=== PATIENT | female | born 1970 | race Caucasian/White ===

== ENCOUNTER 2018-08-23 20:12 | Emergency (ER) | payer OTHER ==
[~2018-08-23] VITALS: Ht 165.1 cm; Wt 71.4 kg
[2018-08-23 21:30] VITALS: Ht 165.1 cm; Wt 71.4 kg
[2018-08-23] MEDS ORDERED: ALBUTEROL 0.5% (NEB) 2.5 MG/0.5 ML AMP NEB STA (23:17)
[2018-08-23] MEDS ORDERED: predniSONE 20 MG TAB PO STA (23:17)
--- NOTE | 2018-08-23 23:23 | ERD ---
ER Documentation Chief Complaint Chief Complaint FEVER, COUGH, SOB X 1 WEEK HPI 47-year-old female with no significant past medical history presenting to the emergency department with complaints of intermittent chills, nasal congestion, and cough for the past 1 week. She reports sharp chest pain when coughing. She also reports shortness of breath which is intermittent. She is tried [id number] medication with some relief of her symptoms. Symptoms are currently moderate in severity. She denies any other symptoms at this time. ROS All systems reviewed and are negative except as per history of present illness. Medications Home Meds Active Scripts Ibuprofen* (Motrin*) 600 Mg Tab, 600 MG PO Q6, #30 TAB Prov:FILOMENA PEREZ PA-C 08/24/18 Benzonatate* (Benzonatate*) 200 Mg Capsule, 200 MG PO TID PRN for COUGH, #15 CAP Prov:FILOMENA PEREZ PA-C 08/24/18 Amoxicillin/Potassium Clav (Amox-Clav 875-125 mg Tablet) 875-125 mg Tab, 1 TAB PO BID for 10 Days, #20 TAB Prov:FILOMENA PEREZ PA-C 08/24/18 Methylprednisolone* (Medrol* DOSE PACK) 4 Mg/Dose-Pack Tab.ds.pk, 4 MG PO . DIRECTED, #1 PACKET Prov:FILOMENA PEREZ PA-C 08/24/18 Albuterol Sulfate* (Ventolin HFA*) 18 Gm Hfa.aer.ad, 2 PUFF INHALATION Q4H, #1 INHALER Prov:FILOMENA PEREZ PA-C 08/24/18 Allergies Allergies: Coded Allergies: No Known Allergy (Unverified , 08/23/18) PMhx/Soc Medical and Surgical Hx: pt denies Medical Hx, pt denies Surgical Hx Hx Alcohol Use: No Hx Substance Use: No Hx Tobacco Use: No Smoking Status: Never smoker FmHx Family History: No diabetes Physical Exam Vitals Vital Signs Date Temp Pulse Resp B/P (MAP) Pulse Ox O2 O2 Flow FiO2 Time Delivery Rate 08/24/18 98.1 90 18 117/57 97 01:51 (77) 08/23/18 100.2 23:45 08/23/18 78 20 100 21 23:39 08/23/18 100.2 99 18 116/70 98 21:30 (85) Physical Exam Const: No acute distress Head: Atraumatic Eyes: Normal Conjunctiva ENT: Normal External Ears, Nose and Mouth. Left tympanic membrane is significantly erythematous. Neck: Full range of motion. No meningismus. Resp: Mild inspiratory wheezing noted to the right lower lung field. No crackles. No respiratory distress. Cardio: Regular rate and rhythm, no murmurs Skin: No petechiae or rashes Back: No midline or flank tenderness Ext: No cyanosis, or edema Neur: Awake and alert Psych: Normal Mood and Affect Results 24 hrs Laboratory Tests Test 08/24/18 01:12 POC Beta HCG, Qualitative NEGATIVE Current Medications Medications Dose Sig/Leola Start Time Status Last (Trade) Ordered Route PRN Stop Time Admin Dose Reason Admin Albuterol 10 mg ONCE STAT 08/23/18 DC 08/23/18 (Proventil NEB 23:17 08/23/18 23:38 0.5% (Neb)) 23:22 Prednisone 60 mg ONCE STAT 08/23/18 DC 08/23/18 (Prednisone) PO 23:17 08/23/18 23:44 23:22 650 mg ONCE ONCE 08/23/18 DC 08/23/18 Acetaminophen PO 23:30 08/23/18 23:45 (Tylenol 23:31 Tab) Procedures/MDM 47-year-old female presenting to the emergency department with signs and symptoms most consistent with acute bronchitis with wheezing And otitis media on the left . Chest x-ray was negative and full report interpreted by the radiolo gist may be viewed above. Patient is administered breathing treatment and prednisone and was significantly improved on reevaluation. Patient's respiratory status has stabilized while in the department and is appropriate for outpatient work up. Exam and work up not consistent w/ impending respiratory failure or cardiovascular collapse. No evidence of life-threatening pathology at time of discharge. Pt/family in agreement with discharge plan/diagnosis. Pt/family advised to return immediately with any new or worsening symptoms. Follow-up with primary care physician within the next 1-2 days. Disclaimer: Inadvertent spelling and grammatical errors are likely due to EHR/dictation software use and do not reflect on the overall quality of patient care. Also, please note that the electronic time recorded on this note does not necessarily reflect the actual time of the patient encounter. Departure Diagnosis: Primary Impression: URI (upper respiratory infection) Additional Impression: Otitis media Condition: Fair Patient Instructions: Otitis Media, Abx Tx (Adult) FILOMENA PEREZ PA-C Aug 23, 2018 23:23
[2018-08-23] MEDS ORDERED: ACETAMINOPHEN 325 MG TAB PO ONE (23:30)
[2018-08-24] MEDS ORDERED: MED4DP PO (01:34)
[2018-08-24] MEDS ORDERED: IBUP-1542 PO (01:34)
[2018-08-24] MEDS ORDERED: AMOX1TAB10 PO (01:34)
[2018-08-24] MEDS ORDERED: BENZ200C68 PO (01:34)
[2018-08-24] MEDS ORDERED: ALBU18HF INHALATION (01:34)
[2018-08-24 01:51] VITALS: BP 117/57; PULSE 90; RESP 18
== END 2018-08-24 01:51 | disposition home or self-care (01) ==
LOC: FTE 20:12
DX: J06.9 Acute upper respiratory infection, unspecified (principal); J20.9 Acute bronchitis, unspecified; H66.92 Otitis media, unspecified, left ear
CPT/HCPCS: 71045; 81025; 94664; J7512; Z7502; Z7610